=== PATIENT | female | born 1970 | race Caucasian/White ===

== ENCOUNTER 2022-08-29 07:55 | Outpatient (CLI) | payer BC, SELFPAY | END 2022-08-29 07:56 | disposition home or self-care (01) | LOC: OP CLINIC 07:56 | PROVIDERS: PCP Physician Assistant Medical; Visit Provider Surgery | DX: Z12.11 Encounter for screening for malignant neoplasm of colon (principal); K64.4 Residual hemorrhoidal skin tags; Z83.71 Family history of colonic polyps | CPT/HCPCS: 45378; 99153; J1200; J2250; J2405; J3010 ==

== ENCOUNTER 2022-09-02 09:00 | Outpatient (RCR) | payer BC, SELFPAY | END 2023-02-20 23:59 | disposition home or self-care (01) | PROVIDERS: PCP Physician Assistant Medical; Visit Provider Orthopaedic Surgery | DX: M25.562 Pain in left knee (principal); M25.561 Pain in right knee; M17.9 Osteoarthritis of knee, unspecified; M25.662 Stiffness of left knee, not elsewhere classified; M25.661 Stiffness of right knee, not elsewhere classified; Z51.89 Encounter for other specified aftercare | CPT/HCPCS: 97110; 97161 ==

== ENCOUNTER 2022-10-10 08:58 | Outpatient (CLI) | payer BC, SELFPAY | END 2022-10-10 08:59 | disposition home or self-care (01) | PROVIDERS: PCP Physician Assistant Medical; Visit Provider Physician Assistant Medical | DX: Z00.00 Encounter for general adult medical examination without abnormal findings (principal); R53.83 Other fatigue; E66.9 Obesity, unspecified; Z13.6 Encounter for screening for cardiovascular disorders | CPT/HCPCS: 80053; 80061; 82607; 84443 ==

== ENCOUNTER 2022-11-15 12:48 | Outpatient (CLI) | payer BC, SELFPAY ==
--- NOTE | 2022-11-15 13:00 | CRLHL7_ITS ---
For Patients: As a result of the Century Cures Act, medical imaging exams and procedure reports are released immediately into your electronic medical record. You may view this report before your referring provider. If you have questions, please contact your health care provider. BILATERAL DIGITAL SCREENING MAMMOGRAM WITH TOMOSYNTHESIS AND COMPUTER-AIDED DETECTION CLINICAL HISTORY: Routine screening exam. COMPARISON: 10/23/2021, 10/16/2020, 09/02/2019. TECHNIQUE: Digital mammogram in CC and MLO projections including computer-aided detection (CAD). Tomosynthesis utilized. BREAST COMPOSITION: There are areas of scattered fibroglandular density. FINDINGS: RIGHT Breast: No suspicious findings. LEFT Breast: Focal asymmetric density lateral LEFT breast 6 cm from the nipple CC view only. IMPRESSION: LEFT breast asymmetry/mass. RECOMMENDATIONS: Additional mammographic views of the LEFT breast including 3D spot compression CC and 3D XCCL. LEFT breast ultrasound may also be required. BI-RADS Category 0: Incomplete: Need Additional Imaging Evaluation and/or Prior Mammograms for Comparison [facility] will contact the patient for follow-up. A lay language report of this examination will be provided to the patient. Dictated by Christiano Mathews MD @ 11/18/2022 8:43:37 AM jj/Dictated by: Christiano Mathews MD @ 11/18/2022 8:43:00 AM (Electronically Signed)
== END 2022-11-15 12:49 | disposition home or self-care (01) ==
LOC: MAMMO 12:49
PROVIDERS: PCP Physician Assistant Medical; Visit Provider Physician Assistant Medical
DX: Z12.31 Encounter for screening mammogram for malignant neoplasm of breast (principal); N63.20 Unspecified lump in the left breast, unspecified quadrant
CPT/HCPCS: 77063; 77067

== ENCOUNTER 2022-11-18 19:28 | Outpatient (CLI) | payer BC, SELFPAY ==
--- NOTE | 2022-11-27 09:59 | W.PM.SLEEP ---
Sleep Study Details Details Interpreting Provider: Jovana Date of Sleep Study: 11/18/22 Sleep Study Details: STUDY TYPE:? Home unattended ? BMI:? 34.1 ORDERING PROVIDER:Sima Walton INDICATION:? Concerns about sleep apnea ? SLEEP SUMMARY:? 450.6 minutes monitored RESPIRATORY SUMMARY:? AHI 5.3, supine AHI 6.3, left lateral 1.5, right lateral 0 Low oxygen 88 0.6% of study oxygen less than 90% Snoring 1.6% PERIODIC LIMB MOVEMENTS OF SLEEP:? Not recorded CARDIAC:? Range 53-1 1, mean 64 IMPRESSION:? Mild obstructive sleep apnea with supine position dependency RECOMMENDATION: Treatment options include CPAP AutoSet, dental appliance and/or airway expansion surgery.
== END 2022-11-18 19:29 | disposition home or self-care (01) ==
LOC: SLEEP 19:29
PROVIDERS: PCP Physician Assistant Medical; Visit Provider Physician Assistant Medical
DX: G47.33 Obstructive sleep apnea (adult) (pediatric) (principal)
CPT/HCPCS: 95806

== ENCOUNTER 2022-11-25 10:28 | Outpatient (CLI) | payer BC, SELFPAY ==
--- NOTE | 2022-11-25 10:45 | CRLHL7_ITS ---
For Patients: As a result of the Century Cures Act, medical imaging exams and procedure reports are released immediately into your electronic medical record. You may view this report before your referring provider. If you have questions, please contact your health care provider. DIGITAL DIAGNOSTIC LEFT MAMMOGRAM WITH COMPUTER-AIDED DETECTION AND TOMOSYNTHESIS LEFT BREAST ULTRASOUND CLINICAL HISTORY: Possible asymmetry. TECHNIQUE: These mammographic images have been obtained using full-field digital technique. These mammographic images were interpreted with the benefit of computer-aided detection. Breast Tomosynthesis was used in this interpretation. COMPARISON FILM: Mammogram 11/15/2022, 10/23/2021. BREAST COMPOSITION: The breasts are heterogeneously dense, which may obscure small masses FINDINGS: Spot compression views demonstrate spreading out of the glandular tissue. Ultrasound over the LEFT lateral breast from 6 to 12 o`clock position demonstrates no suspicious findings. IMPRESSION: No mammographic or sonographic findings for malignancy. Would recommend return to yearly screening mammography. ASSESSMENT: BI-RADS Category 2: Benign A lay language report of this examination will be provided to the patient. Afia Givens M.D. Diagnostic/Breast Radiologist [email or web address] TOBI/[email or web address] [email or web address]/Dictated by: Aifa Givens MD @ 11/25/2022 11:32:00 AM (Electronically Signed)
--- NOTE | 2022-11-25 11:15 | CRLHL7_ITS ---
For Patients: As a result of the Cures Act, medical imaging exams and procedure reports are released immediately into your electronic medical record. You may view this report before your referring provider. If you have questions, please contact your health care provider. PLEASE SEE DIGITAL DIAGNOSTIC LEFT MAMMOGRAM PERFORMED SAME DAY CRL:[email or web address] stallings/Dictated by: Afia Givens MD @ 11/25/2022 11:32:00 AM (Electronically Signed)
== END 2022-11-25 10:29 | disposition home or self-care (01) ==
LOC: MAMMO 10:29
PROVIDERS: PCP Physician Assistant Medical; Visit Provider Physician Assistant Medical
DX: R92.2 Inconclusive mammogram (principal); R92.8 Other abnormal and inconclusive findings on diagnostic imaging of breast; N63.20 Unspecified lump in the left breast, unspecified quadrant
CPT/HCPCS: 76642; 77065; G0279

== ENCOUNTER 2023-11-17 12:59 | Outpatient (CLI) | payer BC, SELFPAY ==
--- NOTE | 2023-11-17 13:00 | MM_ITS ---
Patient: ALOK HEARN Facility:?[facility] R[facility] Patient ID:?[id number] Site Patient ID:?[id number]. Site :?[id number] Study:?XRay-Breast Bilateral 3D W/CAD-11/17/2023 1:23:15 PM Ordering Physician:Amy Final Report: BILATERAL SCREENING MAMMOGRAM WITH COMPUTER-AIDED DETECTION AND TOMOSYNTHESIS TECHNIQUE: CC, MLO and Implant displaced views were obtained. These mammographic images have been obtained using full-field digital technique. These mammographic images were interpreted with the benefit of computer-aided detection. Breast Tomosynthesis was used in this interpretation. COMPARISON FILM: 11/15/22, 10/23/21, 10/16/20. FINDINGS: There are scattered areas of fibroglandular density. IMPRESSION: There is no radiographic evidence for malignancy. ASSESSMENT: BI-RADS Category 2: Benign RECOMMENDATION: Routine screening mammogram in 1 year. A lay language report of this examination will be provided to the patient. Christiano Mathews M.D. Diagnostic Radiologist [email or web address] DSM/sp R& Transcribed: 2:08 p.m. SP/Dictated by: Christiano Mathews MD @ 11/18/2023 9:03:00 AM Signed by:?Christiano Mathews MD @11/18/2023 2:34:18 PM (Electronic Signature)
== END 2023-11-17 13:00 | disposition home or self-care (01) ==
LOC: MAMMO 12:59
PROVIDERS: PCP Physician Assistant Medical; Visit Provider Physician Assistant Medical
DX: Z12.31 Encounter for screening mammogram for malignant neoplasm of breast (principal)
CPT/HCPCS: 77063; 77067

== ENCOUNTER 2024-11-17 08:12 | Outpatient (CLI) | payer BC, SELFPAY | END 2024-11-17 08:13 | disposition home or self-care (01) | PROVIDERS: PCP Physician Assistant Medical; Visit Provider Physician Assistant Medical | DX: D64.9 Anemia, unspecified (principal); E55.9 Vitamin D deficiency, unspecified; E78.5 Hyperlipidemia, unspecified; R53.83 Other fatigue; Z79.899 Other long term (current) drug therapy | CPT/HCPCS: 80053; 80061; 82306; 82607; 82728; 84443 ==

== ENCOUNTER 2024-11-29 13:02 | Outpatient (CLI) | payer BC, SELFPAY ==
--- NOTE | 2024-11-29 13:20 | CRLHL7_ITS ---
For Patients: As a result of the Century Cures Act, medical imaging exams and procedure reports are released immediately into your electronic medical record. You may view this report before your referring provider. If you have questions, please contact your health care provider. INDICATION: BILATERAL SCREENING MAMMOGRAM, ASYMPTOMATIC 54 Y/O FEMALE COMPARISON: 11/17/23, 11/15/22, 10/23/21 TECHNIQUE: CC and MLO views were obtained. These mammographic images have been obtained using full-field digital technique. These mammographic images were interpreted with the benefit of computer aided detection and tomosynthesis. BREAST COMPOSITION: The breasts are heterogeneously dense, which may obscure small masses. FINDINGS: No suspicious findings. ASSESSMENT: BI-RADS 2 Benign RECOMMENDATION: Annual screening mammogram. A lay language report of this examination will be provided to the patient. Dictated by: Christiano Mathews MD @ 12/06/2024 09:39:03 (Electronically Signed)
== END 2024-11-29 13:03 | disposition home or self-care (01) ==
LOC: MAMMO 13:02
PROVIDERS: PCP Physician Assistant Medical; Visit Provider Physician Assistant Medical
DX: Z12.31 Encounter for screening mammogram for malignant neoplasm of breast (principal); R92.333 Mammographic heterogeneous density, bilateral breasts
CPT/HCPCS: 77063; 77067